=== PATIENT | female | born 1980 | race African-American/Black ===

== ENCOUNTER 2019-05-22 08:42 | Outpatient (CLI) | payer OTHER ==
--- NOTE | 2019-05-22 09:54 | RAD ---
CHEST TWO VIEWS: HISTORY: Positive PPD skin test. FINDINGS: The lungs appear clear. The heart and mediastinum are unremarkable. The osseous structures are unre markable. No evidence of primary or secondary TB. IMPRESSION: Unremarkable chest. POS: OFF
== END 2019-05-22 08:43 | disposition home or self-care (01) ==
LOC: MADRAD 08:42
PROVIDERS: ATTEND Family Medicine
DX: R76.11 Nonspecific reaction to tuberculin skin test without active tuberculosis (principal)
CPT/HCPCS: 71046

== ENCOUNTER 2021-10-17 19:42 | Emergency (ER) | payer SELFPAY ==
[2021-10-17] MEDS ORDERED: Clindamycin 150 MG CAP ONE (20:32)
[2021-10-17] MEDS ORDERED: HYDROcodone/Acetaminophen 5/325 mg Tablet ONE (20:32)
== END 2021-10-17 20:55 | disposition home or self-care (01) ==
LOC: MADERS 19:42
DX: L03.113 Cellulitis of right upper limb (principal); I10 Essential (primary) hypertension
CPT/HCPCS: 99283